=== PATIENT | male | born 1950 | race Caucasian/White ===

== ENCOUNTER 2024-07-11 10:24 | Day surgery (SDC) | payer MEDICARE, OTHER ==
[2024-07-11] MEDS ORDERED: Sodium Bicarbonate 2.5 MEQ/5 ML SDV ONE (11:16)
[2024-07-11] MEDS ORDERED: Lidocaine 1% PF 5 ML VIAL ONE (11:16)
[2024-07-11] MEDS ORDERED: Lidocaine 1% w/Epinephrine 1:100K 20 ML VIAL ONE (11:17)
== END 2024-07-11 12:45 | disposition home or self-care (01) ==
LOC: ULT 10:24
PROVIDERS: ATTEND Otolaryngology Plastic Surgery within the Head & Neck
PROC: 07B13ZX Excision of Right Neck Lymphatic, Percutaneous Approach, Diagnostic (ICD-10-PCS; principal; 2024-07-11)
DX: C81.71 Other Hodgkin lymphoma, lymph nodes of head, face, and neck (principal); I10 Essential (primary) hypertension; I25.10 Atherosclerotic heart disease of native coronary artery without angina pectoris; Z90.89 Acquired absence of other organs; Z85.828 Personal history of other malignant neoplasm of skin; Z88.8 Allergy status to other drugs, medicaments and biological substances; Z79.82 Long term (current) use of aspirin; Z79.899 Other long term (current) drug therapy
CPT/HCPCS: 20206; 76942; 88184; 88185; 88307; 88333; 88334; 88341; 88342

== ENCOUNTER 2024-08-01 11:00 | Outpatient (CLI) | payer MEDICARE, OTHER | END 2024-08-01 11:01 | disposition home or self-care (01) | LOC: PET 11:00 | PROVIDERS: ATTEND Internal Medicine | DX: C81.21 Mixed cellularity Hodgkin lymphoma, lymph nodes of head, face, and neck (principal); R59.0 Localized enlarged lymph nodes; Z98.890 Other specified postprocedural states | CPT/HCPCS: 78815; A9552 ==

== ENCOUNTER 2024-10-08 11:00 | Outpatient (CLI) | payer MEDICARE, OTHER | END 2024-10-08 11:01 | disposition home or self-care (01) | LOC: PET 11:00 | PROVIDERS: ATTEND Internal Medicine | DX: C81.21 Mixed cellularity Hodgkin lymphoma, lymph nodes of head, face, and neck (principal); R59.0 Localized enlarged lymph nodes | CPT/HCPCS: 78815; A9552 ==

== ENCOUNTER 2025-07-30 10:12 | Outpatient (CLI) | payer MEDICARE, OTHER ==
[2025-07-30 10:57] LABS: Estimated GFR - POC 63.0
[2025-07-30] MEDS ORDERED: Iopamidol 370 76% 100 ML VIAL ONE (11:51)
== END 2025-07-30 10:13 | disposition home or self-care (01) ==
LOC: CT 10:12
PROVIDERS: ATTEND Internal Medicine
DX: C81.21 Mixed cellularity Hodgkin lymphoma, lymph nodes of head, face, and neck (principal)
CPT/HCPCS: 36415; 71260; 74177; 82565; Q9967